=== PATIENT | female | born 1990 | race African-American/Black ===

== ENCOUNTER 2018-01-16 10:24 | Emergency (ER) | payer MEDICAID, OTHER ==
[~2018-01-16] VITALS: Ht 172.7 cm; Wt 85.0 kg
[~2018-01-16 10:24] MED LIST: OCUF0.3D LEFT EYE
[2018-01-16 10:35] VITALS: BP 105/55; PULSE 98; RESP 16; TEMP 98.6; O2SAT 98
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
--- NOTE | 2018-01-16 11:51 | RADRPT ---
EXAM DATE/TIME: 01/16/2018 11:30 [place] COMPARISON: No previous studies available for comparison. INDICATIONS : Fall yesterday. Pain medial/distal aspect. MEDICAL HISTORY : None. SURGICAL HISTORY : None. ENCOUNTER: Initial ACUITY: 1 day PAIN SCORE: 9/10 LOCATION: Left Knee FINDINGS: Four view examination of the left knee demonstrates no evidence of fracture or dislocation. Bony min eralization is normal. The articular surfaces are intact. The suprapatellar soft tissues have a nor mal configuration. CONCLUSION: No evidence of recent bony injury. Noel Armando MD on January 16, 2018 at 11:46 Board Certified Radiologist. This report was verified electronically.
[2018-01-16] MEDS ORDERED: IBUP1TAB7 PO (11:57)
== END 2018-01-16 12:22 | disposition home or self-care (01) ==
LOC: NEPK 10:24
DX: M25.562 Pain in left knee (principal)
CPT/HCPCS: 73564; 99283; E0113